=== PATIENT | female | born 1965 | race Caucasian/White ===

== ENCOUNTER 2018-02-22 16:01 | Emergency (ER) | payer OTHER ==
--- NOTE | 2018-02-22 16:25 | PDOC ---
Rapid Medical Evaluation Chief Complaint: Injury Time Seen by Provider: 02/22/18 16:23 Medical Evaluation: Allergies Allergy/AdvReac Type Severity Reaction Status Date / Time No Known Allergies Allergy Verified 02/22/18 16:23 02/22/18 16:23 I have performed a brief in person evaluation of this patient. The patient presents with a chief complaint of: Right shoulder pain Pertinent PE: Skin: Clear Lungs: Clear Heart: RRR MS: Focused on the right shoulder, Pt has no deformity, pain upon palpation, radial pulses present, cap refill less than 2 seconds, sensation intact. Neuro: Alert and oriented Psych: Appropriate affect I have ordered the following: right shoulder xray The patient will proceed to: pt will go to [facility] for further evaluation. Discharge Disposition - Diagnosis Shoulder sprain Qualifiers: Encounter type: initial encounter Shoulder sprain type: other part of shoulder region Laterality: right Qualified Code(s): S43.491A - Other sprain of right shoulder joint, initial encounter - Referrals - Patient Instructions - Post Discharge Activity
[2018-02-22 16:26] VITALS: BP 117/74; PULSE 71; TEMP 98.7; BMI 29.0
--- NOTE | 2018-02-22 16:52 | PDOC ---
History of Present Illness - General Chief Complaint: Injury Stated Complaint: INJURY Time Seen by Provider: 02/22/18 16:23 - History of Present Illness Initial Comments: 52-year-old female with out significant comorbidities presents for evaluation of right shoulder pain. She states she fell and slipped on wet floor while at work yesterday. Splice to the posterior aspect of the right shoulder as the area of her discomfort. She denies hitting her head. No loss of consciousness. No postinjury visual changes nausea or vomiting. 02/22/18 16:49 Past History - Past Medical History Allergies/Adverse Reactions: Allergies Allergy/AdvReac Type Severity Reaction Status Date / Time No Known Allergies Allergy Verified 02/22/18 16:23 Home Medications: Ambulatory Orders Azithromycin [Zithromax Tri-Wes (3 DAYS) -] 500 mg PO DAILY #3 tablet 03/27/16 Anemia: No Asthma: No Cancer: No Cardiac Disorders: No CVA: No COPD: No CHF: No Dementia: No Diabetes: No GI Disorders: No Disorders: No HTN: No Hypercholesterolemia: No Liver Disease: No Seizures: No Thyroid Disease: No - Suicide/Smoking/Psychosocial Hx Smoking Status: No Smoking History: Never smoked Have you smoked in the past 12 months: No Number of Cigarettes Smoked Daily: 0 Information on smoking cessation initiated: No Hx Alcohol Use: No Drug/Substance Use Hx: No Substance Use Type: None Hx Substance Use Treatment: No Review of Systems - Review of Systems Musculoskeletal: Yes: See HPI, Joint Pain All Other Systems: Reviewed and Negative *Physical Exam - Vital Signs Last Vital Signs Temp Pulse Resp BP Pulse Ox 98.7 F 71 18 117/74 100 02/22/18 16:23 02/22/18 16:23 02/22/18 16:23 02/22/18 16:23 02/22/18 16:23 - Physical Exam Comments: Cervical spine skin color and temperature are normal range of motion is full and nonpainful. There is no paracervical musculature spasm or tenderness. 5 out of 5 strength in bilateral upper extremities negative Spurling maneuver no gross sensorimotor deficits. Neurovascular intact Right shoulder skin color and temperature are normal range of motion is full with some discomfort and stiffness a terminal abduction and external rotation. Mild tenderness about the posterior lateral corner of the acromion. 5 out of 5 strength in supraspinous isolation. Mildly positive impingement maneuvers no gross sensorimotor deficits she is neurovascularly intact 02/22/18 16:50 Medical Decision Making - Medical Decision Making X-rays of the right shoulder have been reviewed. Besides moderate before meals joint arthritis this is most likely just a shoulder contusion follow-up with orthopedics 02/22/18 16:50 *DC/Admit/Observation/Transfer Diagnosis at time of Disposition: Shoulder contusion Diagnosis at time of Disposition: (Ruled Out): Shoulder sprain - Discharge Dispostion Disposition: HOME Condition at time of disposition: Stable Decision to Admit order: No - Referrals Referrals: Sharon Moreno MD [Primary Care Provider] - Aubrey Munoz MD [Staff Physician] - - Patient Instructions Printed Discharge Instructions: Contusion, DI for Contusion Additional Instructions: Return to the emergency room should symptoms worsen or go unresolved. Follow-up with orthopedic surgery in 2-3 days for further evaluation and treatment options. Continue to take care regular home medication as prescribed. If he needs anything in addition he may take Tylenol for pain. Tylenol as directed. Please check with your doctor prior to taking Tylenol, I do not know what other medications you are taking Present. - Post Discharge Activity
== END 2018-02-22 16:55 | disposition home or self-care (01) ==
LOC: JERFT 16:01
DX: S40.011A Contusion of right shoulder, initial encounter (principal); W01.0XXA Fall on same level from slipping, tripping and stumbling without subsequent striking against object, initial encounter; Y93.89 Activity, other specified; Y92.59 Other trade areas as the place of occurrence of the external cause; Y99.0 Civilian activity done for income or pay
CPT/HCPCS: 73030-TC-RT-FY; 99281-25

== ENCOUNTER 2019-02-05 07:32 | Emergency (ER) | payer OTHER ==
[2019-02-05 07:49] VITALS: TEMP 98.2; BMI 29.9
--- NOTE | 2019-02-05 07:57 | PDOC ---
History of Present Illness - General Chief Complaint: Pain, Acute Stated Complaint: ABDOMEN DISTENDED & PAINFUL Time Seen by Provider: 02/05/19 07:55 History Source: Patient Exam Limitations: No Limitations - History of Present Illness Initial Comments: 02/05/19 07:58 Melissa Morales is a 53y previously healthy F presenting w AB distension. Has progressively worsening AB distention for past 3 days, associated epigastric pain, L shoulder pain, SOB. Pain not worse w exertion, comes/goes. Had subjective fever yesterday. Did not take any meds for symptom relief. Had gastric bypass 8 years ago without complications. Last BM last night. Denies HTN , HLD, DM, fam hx cardiac issues. Denies alcohol/smoking, illicit drugs. Denies nausea/vomiting, cough, chest pain, urinary symptoms, diarrhea/constipation. Denied past AB distension/fluid. Past History - Past Medical History Allergies/Adverse Reactions: Allergies Allergy/AdvReac Type Severity Reaction Status Date / Time No Known Allergies Allergy Verified 02/22/18 16:23 Home Medications: Ambulatory Orders NK [No Known Home Medication] 02/22/18 Anemia: No Asthma: No Cancer: No Cardiac Disorders: No CVA: No COPD: No CHF: No Dementia: No Diabetes: No GI Disorders: No Disorders: No HTN: No Hypercholesterolemia: No Liver Disease: No Seizures: No Thyroid Disease: No - Immunization History Immunization Up to Date: No - Psycho Social/Smoking Cessation Hx Smoking Status: No Smoking History: Never smoked Have you smoked in the past 12 months: No Number of Cigarettes Smoked Daily: 0 Information on smoking cessation initiated: No Hx Alcohol Use: Yes Drug/Substance Use Hx: No Substance Use Type: None Hx Substance Use Treatment: No Review of Systems - Review of Systems Constitutional: No: Chills, Fever HEENTM: No: Eye Pain, Nose Pain, Nose Congestion, Throat Pain, Mouth Pain Respiratory: Yes: Shortness of Breath. No: Cough Cardiac (ROS): No: Chest Pain, Palpitations, Syncope ABD/GI: Yes: Abdominal Distended. No: Constipated, Diarrhea, Nausea, Vomiting : No: Burning, Dysuria, Discharge, Frequency, Flank Pain, Hematuria Musculoskeletal: No: Back Pain, Joint Pain, Joint Swelling, Muscle Pain Integumentary: No: Bruising, Dryness, Erythema Neurological: No: Headache, Seizure, Tingling Psychiatric: No: Anxiety, Depression, Stressors Endocrine: No: Excessive Sweating, Flushing, Intolerance to Cold, Intolerance to Heat Hematologic/Lymphatic: No: Anemia, Blood Clots *Physical Exam - Vital Signs Last Vital Signs Temp Pulse Resp BP Pulse Ox 98.2 F 80 16 133/85 98 02/05/19 07:34 02/05/19 07:34 02/05/19 07:34 02/05/19 07:34 02/05/19 07:34 - Physical Exam General Appearance: Yes: Nourished, Appropriately Dressed, Mild Distress, Obese HEENT: positive: EOMI, SUNNI, Normal Voice, Hearing Grossly Normal. negative: Scleral Icterus (R), Scleral Icterus (L), Nasal Congestion, Rhinorrhea Respiratory/Chest: positive: Lungs Clear, Normal Breath Sounds. negative: Chest Tender, Respiratory Distress, Crackles, Rales, Rhonchi, Stridor, Wheezing Cardiovascular: positive: Regular Rhythm, Regular Rate, S1, S2. negative: Edema , Murmur Gastrointestinal/Abdominal: positive: Normal Bowel Sounds, Tender (mildly tender epigastric), Soft, Distended. negative: Organomegaly, Guarding, Rebound Musculoskeletal: negative: CVA Tenderness (R), CVA Tenderness (L) Extremity: positive: Normal Capillary Refill. negative: Swelling (no edema BLE) Integumentary: positive: Normal Color Neurologic: positive: Fully Oriented, Alert, Normal Mood/Affect, Normal Response , Responsive. negative: Numbness, Confused, Disoriented ED Treatment Course - LABORATORY CBC & Chemistry Diagram: 02/05/19 08:40 02/05/19 08:27 Medical Decision Making - Medical Decision Making 02/05/19 08:20 CBC CMP lipase trop EKG CXR Ua Ucx tylenol pepcid maalox Finished drinking PO contrast 1130. CT AB w IV/PO contrast showed massive ascites, surgical clips LUQ smalll bowel, unremarkable liver, no SBO EKG shows NSR, LVH, HR 80, Qtc 429, no ST changes Hgb 10.5, normal CMP, neg trop, UA + nitrite Melissa Morales is a 53y previously healthy F presenting w AB distension due to massive ascites seen on CT AB. Consider liver vs ovarian malignancy (AB distention). Low concern SBP (normal LFTs), SBO not seen on CT. Not ACS w negative trop, NSR EKG. Hgb 10.5, CMP, UA normal. Given tylenol pepcid maalox w some pain relief. D/c home w PCP appointment f/u on Thursday. PCP Dr Josh SANDERS ([phone]) Discharge - Discharge Information Problems reviewed: Yes Clinical Impression/Diagnosis: Ascites Qualifiers: Ascites type: other type Qualified Code(s): R18.8 - Other ascites Condition: Improved Disposition: HOME - Admission No - Follow up/Referral Referrals: Sharon Moreno MD [Primary Care Provider] - - Patient Discharge Instructions Patient Printed Discharge Instructions: DI for Ascites Additional Instructions: You were seen for abdominal swelling. Your imaging showed that you have fluid in your abdomen. Please show up to your appointment on Thursday with your primary care doctor Dr Moreno to determine the cause of the fluid. Come back to the ED if you have worsening pain, swelling, cannot have a bowel movement, or have a fever. --- Usted fue visto por hinchazn abdominal. Svetlana imgenes mostraron que tiene lquido en el abdomen. Presntese a salazar fabio el con salazar mdico de atencin primaria, el Dr. Cali, para determinar la causa del lquido. Regrese al servicio de urgencias si tiene un empeoramiento del dolor, hinchazn , no puede defecar o tiene fiebre. Print Language: L[place]ISH - Post Discharge Activity
[2019-02-05] MEDS ORDERED: FAMOTIDINE 20 MG/50 ML IVPB 20 MG/50 ML MG IVPB ONE ×2 (08:19→08:35)
[2019-02-05] MEDS ORDERED: MAG HYDROX/AL HYDROX/SIMETH -MYLANTA- ORAL SUSPENSION PO ONE (08:19)
[2019-02-05] MEDS ORDERED: ACETAMINOPHEN 1000 MG/100 ML VIAL (NON FORMULARY) IVPB ONE (08:19)
[2019-02-05] MEDS ORDERED: ACETAMINOPHEN INJECTION 100 ML IVPB ONE (08:34)
[2019-02-05] MEDS ORDERED: MAG HYDROX/AL HYDROX/SIMETH 30 ML UNIT-DOSE CUP ONE (08:34)
[2019-02-05 09:22] LABS: HEMATOCRIT 32.3 % (32.4-45.2); HEMOGLOBIN 10.5 GM/dL (10.7-15.3); RBC 4.24 M/mm3 (3.60-5.2)
[2019-02-05 09:26] LABS: BASO % 0.4 % (0-2.0); EOS % 1.7 % (0-4.5); LYMPH % 22.6 % (8-40); MCH 24.8 pg (25.7-33.7); MCHC 32.6 g/dl (32.0-36.0); MEAN CELL VOLUME 76.2 fl (80-96); MEAN PLT VOLUME 7.6 fl (7.5-11.1); MONO % 10.6 % (3.8-10.2); NEUT % 64.7 % (42.8-82.8); PLATELET COUNT 381 K/MM3 (134-434); WHITE BLOOD COUNT 5.5 K/mm3 (4.0-10.0)
[2019-02-05 09:34] LABS: URINE APPEARANCE CLEAR; URINE BILIRUBIN NEGATIVE (NEGATIVE); URINE COLOR YELLOW; URINE GLUCOSE (UA) NEGATIVE (NEGATIVE); URINE KETONE NEGATIVE (NEGATIVE); URINE LEUK ESTERASE TRACE (NEGATIVE); URINE NITRITE POSITIVE (NEGATIVE); URINE PROTEIN NEGATIVE (NEGATIVE)
[2019-02-05 09:59] LABS: ALK PHOS 92 U/L (45-117); ANION GAP 6 MMOL/L (8-16); BILIRUBIN,TOTAL 0.2 mg/dL (0.2-1); BLOOD UREA NITROGEN 5.8 mg/dL (7-18); CALCIUM 8.5 mg/dL (8.5-10.1); CHLORIDE 106 mmol/L (98-107); CO2 29 mmol/L (21-32); CREATININE 0.7 mg/dL (0.55-1.3); GLUCOSE,RANDOM 82 mg/dL (74-106); LIPASE 142 U/L (73-393); POTASSIUM 4.2 mmol/L (3.5-5.1); SGOT/AST 25 U/L (15-37); SGPT/ALT 14 U/L (13-61); SODIUM 140 mmol/L (136-145); TOT PROT 6.7 g/dl (6.4-8.2)
--- NOTE | 2019-02-05 10:37 | PDOC ---
Attending Attestation - Resident Resident Name: JamiJonathan - ED Attending Attestation I have performed the following: I have examined & evaluated the patient, The case was reviewed & discussed with the resident, I agree w/resident's findings & plan, Exceptions are as noted - HPI HPI: 02/05/19 10:33 53 yo F h/o gastric bypass 8 hrs ago, here with c/o abd distension, crampy pain. is passing aissatou. urinating without symptoms. last bm last pm normal. no diarrhea or constipation. no f/c . no cough no sob. - Physicial Exam PE: 02/05/19 10:35 awake alert lungs clear bilat heart rrr no mrg abd soft mild distension. nontender. ext wpp no edema. no calf tenderness. nuero alert oriented x 3 - Medical Decision Making 02/05/19 10:36 53 yo f with h/o gastric bypass, abd distensio, distension on exam. min tenderness. plan ct a/p labs reassess.
[2019-02-05 14:51] VITALS: BP 124/63; PULSE 100
[2019-02-05 15:41] LABS: EPI CELLS 15.4 /HPF (0-5/HPF); HYALINE CASTS 19.58 /lpf (0-8); URINE BACTERIA 3230.2 /hpf (NEGATIVE); URINE RBC 0.7 /hpf (0-4); URINE WBC 14.1 /hpf (0-5); YEAST FEW AMORPHOS (NEGATIVE)
--- NOTE | 2019-02-06 16:52 | EKG ---
Test Reason : Blood Pressure : / mmHG Vent. Rate : 080 BPM Atrial Rate : 080 BPM P-R Int : 150 ms QRS Dur : 100 ms QT Int : 372 ms P-R-T Axes : 041 -18 017 degrees QTc Int : 429 ms NORMAL SINUS RHYTHM MINIMAL VOLTAGE CRITERIA FOR LVH, MAY BE NORMAL VARIANT T WAVE ABNORMALITY, CONSIDER ANTEROLATERAL ISCHEMIA ABNORMAL ECG WHEN COMPARED WITH ECG OF 27-MAR-2016 08:46, NO SIGNIFICANT CHANGE WAS FOUND Confirmed by IONA HUIZAR, MARIA TERESA ([id number]) on 02/06/2019 4:52:27 PM Referred By: Confirmed By:MARIA TERESA MONSON MD
== END 2019-02-05 14:52 | disposition home or self-care (01) ==
LOC: JER 07:32
PROC: 3E033GC Introduction of Other Therapeutic Substance into Peripheral Vein, Percutaneous Approach (ICD-10-PCS; principal; 2019-02-05)
PROC: 3E033NZ Introduction of Analgesics, Hypnotics, Sedatives into Peripheral Vein, Percutaneous Approach (ICD-10-PCS; 2019-02-05)
DX: R18.8 Other ascites (principal); Z98.84 Bariatric surgery status
CPT/HCPCS: 36415; 71046-TC-FY; 74177-TC; 80053; 81003; 82550; 83690; 84484; 85025; 87086; 87186; 93005; 93010; 96365; 96375; 99284-25; J0131; Q9967